=== PATIENT | male | born 1955 | race Caucasian/White ===

== ENCOUNTER 2017-04-22 19:15 | Inpatient (IN) | payer BC ==
[2017-04-22] MEDS ORDERED: ASPIRIN 81 MG CHEW PO STA (19:39)
[2017-04-22] MEDS ORDERED: ONDANSETRON 4 MG/2 ML VIAL IVP STA (19:40)
--- NOTE | 2017-04-22 19:44 | ED ---
Arrhythmia/Palpitations HPI - General Source: patient, RN notes reviewed Mode of arrival: wheelchair Limitations: no limitations <Nik Oconnell - Last Filed: 04/22/17 20:41> <Parveen Ashton - Last Filed: 04/22/17 21:02> - General Chief Complaint: Arrhythmia/Palpitations Stated Complaint: Rapid Pulse/Vomiting Time Seen by Provider: 04/22/17 19:33 - History of Present Illness Initial Comments: This a 61-year-old male presents emergency Department with chief complaint of nausea, diaphoresis, not feeling well. Patient states it has no prior arrival he was sitting in the movies and states he has sudden onset of the symptoms. He states he has no chest pain or shortness breath this time. He states he just feels dizzy and feels off. He does complain that he feels that his heart is racing. Patient does admit that he's had a prior history of A. fib and history DVT in which he takes xarelto currently. Patient states he has stress test several years ago but nothing recent. He does have a history of hypertension and some borderline hyperlipidemia though he does not take medication for cholesterol. Patient has family history of heart disease. Patient states is a nonsmoker no history of diabetes. pt denies any chills, , fever, headache, focal weakness. Patient states he has no abdominal pain just nausea and did have an episode of vomiting. (Nik Oconnell) - Related Data Home Medications Medication Instructions Recorded Confirmed Lisinopril [Zestril] 10 mg PO DAILY 08/24/15 04/22/17 Ibuprofen [Motrin] 200 - 400 mg PO Q6HR PRN 04/22/17 04/22/17 Rivaroxaban [Xarelto] 20 mg PO DAILY 04/22/17 04/22/17 Allergies Allergy/AdvReac Type Severity Reaction Status Date / Time No Known Allergies Allergy Verified 04/22/17 20:05 Review of Systems ROS Other: All systems not noted in ROS Statement are negative. <Nik Oconnell - Last Filed: 04/22/17 20:41> ROS Other: All systems not noted in ROS Statement are negative. <Parveen Ashton - Last Filed: 04/22/17 21:02> ROS Statement: Those systems with pertinent positive or pertinent negative responses have been documented in the HPI. Past Medical History Past Medical History: Deep Vein Thrombosis (DVT) Additional Past Medical History / Comment(s): supposed to use CPAP, had hepatitis as a teen, past hx. irregular heartbeat-testing was wnl per pt. History of Any Multi-Drug Resistant Organisms: None Reported Past Surgical History: Orthopedic Surgery Additional Past Surgical History / Comment(s): acl r knee, left bicep tendon, left shoulder, right wrist Past Anesthesia/Blood Transfusion Reactions: Postoperative Nausea & Vomiting ( PONV) Past Psychological History: No Psychological Hx Reported Smoking Status: Never smoker Past Alcohol Use History: Rare Past Drug Use History: None Reported - Past Family History Mother Family Medical History: Cancer <Nik Oconnell - Last Filed: 04/22/17 20:41> General Exam Limitations: no limitations General appearance: alert, in no apparent distress, other (Diaphoretic) Head exam: Present: atraumatic, normocephalic, normal inspection Eye exam: Present: normal appearance, PERRL, EOMI. Absent: scleral icterus, conjunctival injection, periorbital swelling Respiratory exam: Present: normal lung sounds bilaterally. Absent: respiratory distress, wheezes, rales, rhonchi, stridor Cardiovascular Exam: Present: normal rhythm, tachycardia, normal heart sounds. Absent: systolic murmur, diastolic murmur, rubs, gallop, clicks Neurological exam: Present: alert, oriented X3, CN II-XII intact, reflexes normal. Absent: motor sensory deficit Skin exam: Present: warm, dry, intact, normal color. Absent: rash <Nik Oconnell - Last Filed: 04/22/17 20:41> Medical Decision Making - Lab Data Result diagrams: 04/22/17 19:35 04/22/17 19:35 <Nik Oconnell - Last Filed: 04/22/17 20:41> - Lab Data Result diagrams: 04/22/17 19:35 04/22/17 19:35 <Parveen Ashton - Last Filed: 04/22/17 21:02> - Medical Decision Making Chief complaint history of present illness 17-year-old male here with his significant other. She reports that while during a show he stated he didn't feel well. She noticed he was very diaphoretic she brought him directly to the emergency room. Patient is not complaining of chest pain but he states he just doesn't feel well first EKG was ordered rate of 128 which appeared to be A. fib with RVR. 10 minutes later repeat EKG showed what appeared to be a sinus rhythm. The patient continues to be diaphoretic. Lateral ischemic changes noted on the second EKG. The patient has had in the past for DVT for which she was placed on Xarelto. Due to the patient's condition and EKG changes Dr. MELVIN per week, on-call mobility architect was notified and is coming to emergency room see the patient. Dr. Poli MELVIN pre-saw the patient in the emergency room. The patient's heart rhythm switched from 128 down to approximately 70 with normal sinus rhythm. He was admitted to medicine with consult from Dr. MELVIN per [place] saw him in emergency room. Patient to be continued on Xarelto and Lopressor. (Parveen Ashton) - Lab Data Lab Results 04/22/17 04/22/17 04/22/17 Range/Units 19:35 19:35 19:35 WBC 12.2 H (3.8-10.6) k/uL RBC 4.77 (4.30-5.90) m/uL Hgb 15.2 (13.0-17.5) gm/dL Hct 45.3 (39.0-53.0) % MCV 94.9 (80.0-100.0) fL MCH 31.8 (25.0-35.0) pg MCHC 33.5 (31.0-37.0) g/dL RDW 13.9 (11.5-15.5) % Plt Count 287 (150-450) k/uL Neutrophils % 46 % Lymphocytes % 43 % Monocytes % 6 % Eosinophils % 2 % Basophils % 1 % Neutrophils # 5.6 (1.3-7.7) k/uL Lymphocytes # 5.3 H (1.0-4.8) k/uL Monocytes # 0.8 (0-1.0) k/uL Eosinophils # 0.2 (0-0.7) k/uL Basophils # 0.1 (0-0.2) k/uL PT (9.0-12.0) sec INR (<1.2) APTT (22.0-30.0) sec D-Dimer (<0.60) mg/L FEU Sodium 141 (137-145) mmol/L Potassium 3.4 L (3.5-5.1) mmol/L Chloride 106 (98-107) mmol/L Carbon Dioxide 25 (22-30) mmol/L Anion Gap 10 mmol/L BUN 19 (9-20) mg/dL Creatinine 1.22 (0.66-1.25) mg/dL Est GFR (MDRD) Af Amer >60 (>60 ml/min/1.73 sqM) Est GFR (MDRD) Non-Af >60 (>60 ml/min/1.73 sqM) Glucose 84 (74-99) mg/dL Calcium 9.8 (8.4-10.2) mg/dL Magnesium 2.1 (1.6-2.3) mg/dL Total Bilirubin 1.5 H (0.2-1.3) mg/dL AST 32 (17-59) U/L ALT 39 (21-72) U/L Alkaline Phosphatase 69 (38-126) U/L Total Creatine Kinase 467 H (55-170) U/L CK-MB (CK-2) 1.5 (0.0-2.4) ng/mL CK-MB (CK-2) Rel Index 0.3 Troponin I <0.012 (0.000-0.034) ng/mL Total Protein 7.3 (6.3-8.2) g/dL Albumin 4.5 (3.5-5.0) g/dL 04/22/17 04/22/17 Range/Units 19:35 19:35 WBC (3.8-10.6) k/uL RBC (4.30-5.90) m/uL Hgb (13.0-17.5) gm/dL Hct (39.0-53.0) % MCV (80.0-100.0) fL MCH (25.0-35.0) pg MCHC (31.0-37.0) g/dL RDW (11.5-15.5) % Plt Count (150-450) k/uL Neutrophils % % Lymphocytes % % Monocytes % % Eosinophils % % Basophils % % Neutrophils # (1.3-7.7) k/uL Lymphocytes # (1.0-4.8) k/uL Monocytes # (0-1.0) k/uL Eosinophils # (0-0.7) k/uL Basophils # (0-0.2) k/uL PT 11.2 (9.0-12.0) sec INR 1.1 (<1.2) APTT 23.9 (22.0-30.0) sec D-Dimer 0.70 H (<0.60) mg/L FEU Sodium (137-145) mmol/L Potassium (3.5-5.1) mmol/L Chloride (98-107) mmol/L Carbon Dioxide (22-30) mmol/L Anion Gap mmol/L BUN (9-20) mg/dL Creatinine (0.66-1.25) mg/dL Est GFR (MDRD) Af Amer (>60 ml/min/1.73 sqM) Est GFR (MDRD) Non-Af (>60 ml/min/1.73 sqM) Glucose (74-99) mg/dL Calcium (8.4-10.2) mg/dL Magnesium (1.6-2.3) mg/dL Total Bilirubin (0.2-1.3) mg/dL AST (17-59) U/L ALT (21-72) U/L Alkaline Phosphatase (38-126) U/L Total Creatine Kinase (55-170) U/L CK-MB (CK-2) (0.0-2.4) ng/mL CK-MB (CK-2) Rel Index Troponin I (0.000-0.034) ng/mL Total Protein (6.3-8.2) g/dL Albumin (3.5-5.0) g/dL Critical Care Time Critical Care Time: Yes (30 minutes of critical care time spent on 1 patient reviewing 3 EKGs, 3 rep) Total Critical Care Time: 30 <Parveen Ashton - Last Filed: 04/22/17 21:02> Disposition <Nik Oconnell - Last Filed: 04/22/17 20:41> <Parveen Ashton - Last Filed: 04/22/17 21:02> Clinical Impression: Palpitations, Atrial fib/flutter, transient, Tachycardia, Diaphoresis, Nausea & vomiting Disposition: ADMITTED IP TO THIS HOSP Condition: Fair Referrals: Efren Rodriguez MD [Primary Care Provider] - 1-2 days
[2017-04-22 19:52] LABS: Basophils # (A) 0.1 k/uL (0-0.2); Basophils % (A) 1 %; CH 32.9; CHCM 34.8; Eosinophils # (A) 0.2 k/uL (0-0.7); Eosinophils % (A) 2 %; HCT 45.3 % (39.0-53.0); HGB 15.2 gm/dL (13.0-17.5); Luc # (Auto) 0.31; Luc % (Auto) 3; Lymphocytes # (A) 5.3 k/uL (1.0-4.8); Lymphocytes % (A) 43 %; MCH 31.8 pg (25.0-35.0); MCHC 33.5 g/dL (31.0-37.0); MCV 94.9 fL (80.0-100.0); Mean Platelet Volume 7.5; Monocytes # (A) 0.8 k/uL (0-1.0); Monocytes % (A) 6 %; Neutrophils # (A) 5.6 k/uL (1.3-7.7); Neutrophils % (A) 46 %; RBC 4.77 m/uL (4.30-5.90); RDW 13.9 % (11.5-15.5); WBC 12.2 k/uL (3.8-10.6); WBC (Perox) 11.83
[2017-04-22 20:02] LABS: ALT 39 U/L (21-72); AST 32 U/L (17-59); Alkaline Phosphatase 69 U/L (38-126); Anion Gap 10 mmol/L; Blood Urea Nitrogen 19 mg/dL (9-20); Calcium 9.8 mg/dL (8.4-10.2); Carbon Dioxide 25 mmol/L (22-30); Chloride 106 mmol/L (98-107); Glucose 84 mg/dL (74-99); Magnesium 2.1 mg/dL (1.6-2.3); Non-African American GFR(MDRD) >60 (>60 ml/min/1.73 sqM); Potassium 3.4 mmol/L (3.5-5.1); Sodium 141 mmol/L (137-145); Total Bilirubin 1.5 mg/dL (0.2-1.3); Total Protein 7.3 g/dL (6.3-8.2)
[2017-04-22] MEDS ORDERED: POTASSIUM CHLORIDE ER 20 MEQ TAB.ER PO STA (20:03)
--- NOTE | 2017-04-22 20:09 | XR ---
EXAMINATION TYPE: XR chest 1V portable DATE OF EXAM: 04/22/2017 COMPARISON: NONE HISTORY: Chest pain and palpitations with exertion. TECHNIQUE: Single frontal view of the chest is obtained. FINDINGS: There is no focal air space opacity, pleural effusion, or pneumothorax seen. The cardiac silhouette size is within normal limits. The osseous structures are intact. IMPRESSION: No acute cardiopulmonary process.
[2017-04-22 20:16] LABS: Creatine Kinase 467 U/L (55-170)
[2017-04-22 20:17] LABS: INR 1.1 (<1.2); Partial Thromboplastin Time 23.9 sec (22.0-30.0); Prothrombin Time 11.2 sec (9.0-12.0)
[2017-04-22 20:29] LABS: Creatine Kinase MB 1.5 ng/mL (0.0-2.4); Troponin I <0.012 ng/mL (0.000-0.034)
[2017-04-22] MEDS ORDERED: RIVAROXABAN 10 MG TAB PO STA (20:37)
[2017-04-22] MEDS ORDERED: METOPROLOL TARTRATE 5 MG/5 ML VIAL IVP STA (20:37)
[2017-04-22] MEDS ORDERED: NITROGLYCERIN SL TABS 0.4 MG TAB SUBLINGUAL PRN (20:42)
[2017-04-22] MEDS: POTASSIUM CHLORIDE 10 MEQ, LIDOCAINE 2% INJ 10 MG in SODIUM CHLORIDE 0.9% 100 ML IVPB SCH ×3 (21:15→23:55)
[2017-04-22 22:07] VITALS: BMI 31.5
[2017-04-22] MEDS ORDERED: RX INFO: IV CONTRAST WAS GIVEN 1 EACH MISC MISCELLANE PRN (22:08)
--- NOTE | 2017-04-22 23:24 | CT ---
EXAM: CT Angiography Chest With Intravenous Contrast CLINICAL HISTORY: Reason: elevated d-dimer TECHNIQUE: Axial computed tomographic angiography images of the chest with intravenous contrast using pulmonary embolism protocol. CTDI is 12.3 mGy and DLP is 506.7 mGy-cm This CT exam was performed using one or more of the following dose reduction techniques: automated exposure control, adjustment of the mA and/or kV according to patient size, and/or use of iterative reconstruction technique. 3D reconstructed images were created and reviewed. COMPARISON: None FINDINGS: Pulmonary arteries: No pulmonary embolism. Aorta: No aortic aneurysm Lungs: Mild atelectasis. No consolidation. Pleural space: Unremarkable. No significant effusion. No pneumothorax. Heart: Coronary atherosclerosis. Bones/joints: No acute fracture or dislocation Soft tissues: Unremarkable. Lymph nodes: No mediastinal or hilar lymphadenopathy Upper abdomen: Upper abdomen is normal IMPRESSION: No pulmonary embolism. No pulmonary consolidation
[2017-04-23 01:23] LABS: Anion Gap 11 mmol/L; Blood Urea Nitrogen 21 mg/dL (9-20); Calcium 9.3 mg/dL (8.4-10.2); Carbon Dioxide 24 mmol/L (22-30); Chloride 105 mmol/L (98-107); Glucose 145 mg/dL (74-99); Non-African American GFR(MDRD) >60 (>60 ml/min/1.73 sqM); Sodium 140 mmol/L (137-145)
[2017-04-23 01:25] LABS: Creatine Kinase MB 1.2 ng/mL (0.0-2.4)
[2017-04-23 01:47] LABS: Potassium 4.5 mmol/L (3.5-5.1)
[2017-04-23 08:03] LABS: Cholesterol 172 mg/dL (<200); HDL Cholesterol 53 mg/dL (40-60)
[2017-04-23 08:09] LABS: Creatine Kinase 233 U/L (55-170)
[2017-04-23 08:19] LABS: Creatine Kinase MB 1.4 ng/mL (0.0-2.4)
[2017-04-23 08:34] LABS: Troponin I <0.012 ng/mL (0.000-0.034)
[2017-04-23] MEDS ORDERED: ASPIRIN 325 MG TAB PO SCH (09:00)
[2017-04-23] MEDS ORDERED: METOPROLOL TARTRATE 25 MG TAB PO SCH (09:00)
[2017-04-23 09:03] VITALS: BP 111/74; PULSE 65; RESP 16; TEMP 97.2
--- NOTE | 2017-04-23 09:40 | P.CRDCN ---
History of Present Illness Consult date: 04/22/17 Chief complaint: Palpitations History of present illness: Mr. Norwood is a 61-year-old gentleman who was seen in the emergency room for the evaluation of symptoms of weakness and diaphoresis and the palpitation. This patient was in the movie theater and he did not feel well he became dizzy he felt that his heart was racing and he became diaphoretic. And did not complain of any chest pain he did not had any significant shortness of breath. The patient arrived in the emergency room initially he was in normal sinus rhythm subsequently patient was noticed to be in atrial flutter with a rapid rate. Currently patient converted back to normal sinus rhythm. He did feel nauseated and had one episode of vomiting in the emergency room he did not complain of any chest pain patient gives a history that he had an episode of atrial fibrillation several years ago FAMILY prior to surgery. Patient has a history of for DVT up to his knee surgery about a year ago. He has been taking xarelto once a day except dose he does not know his INR was only 1.1 patient claims that he was taking xarelto regularly. He has a history of for hypertension. No history of diabetes. And is active physically does not have any symptoms of angina. Past Medical History Past Medical History: Atrial Fibrillation, Deep Vein Thrombosis (DVT) Additional Past Medical History / Comment(s): supposed to use CPAP, had hepatitis as a teen, past hx. irregular heartbeat-testing was wnl per pt. elevated liver function testing History of Any Multi-Drug Resistant Organisms: None Reported Past Surgical History: Orthopedic Surgery Additional Past Surgical History / Comment(s): acl r knee, left bicep tendon, left/ right rotator cuff sx 2016, right wrist Past Anesthesia/Blood Transfusion Reactions: Postoperative Nausea & Vomiting ( PONV) Past Psychological History: No Psychological Hx Reported Smoking Status: Never smoker Past Alcohol Use History: Rare Past Drug Use History: None Reported - Past Family History Father Family Medical History: Congestive Heart Failure (CHF), COPD, Diabetes Mellitus , Hypertension Additional Family Medical History / Comment(s): elevated liver function Mother Family Medical History: Cancer Medications and Allergies Home Medications Medication Instructions Recorded Confirmed Type Lisinopril [Zestril] 10 mg PO DAILY 08/24/15 04/22/17 History Ibuprofen [Motrin] 200 - 400 mg PO Q6HR PRN 04/22/17 04/22/17 History Rivaroxaban [Xarelto] 20 mg PO DAILY 04/22/17 04/22/17 History Allergies Allergy/AdvReac Type Severity Reaction Status Date / Time No Known Allergies Allergy Verified 04/22/17 20:05 Physical Exam Vitals: Vital Signs Temp Pulse Pulse Resp BP BP Pulse Ox 04/23/17 09:01 97.2 F L 65 16 111/74 97 04/23/17 03:21 96.9 F L 64 18 121/83 96 04/23/17 00:00 96.9 F L 62 18 118/80 100 04/22/17 21:18 96.7 F L 61 18 137/67 98 04/22/17 21:05 55 L 18 118/74 98 04/22/17 20:31 68 20 126/81 99 04/22/17 20:15 71 20 120/82 99 04/22/17 20:14 64 20 123/79 98 04/22/17 20:00 68 20 123/79 96 04/22/17 19:53 126 H 22 04/22/17 19:44 130 H 22 133/89 99 04/22/17 19:33 138 H 22 135/93 97 04/22/17 19:24 98.3 F 75 20 133/85 97 Intake and Output 04/22/17 04/23/17 04/23/17 22:59 06:59 14:59 Intake Total 350 550 Output Total 500 Balance 350 50 Intake: IV 150 450 0.9@75mls/hr 150 450 Intake, IV Titration 200 100 Amount Potassium Chloride 10 meq 200 100 Lidocaine 2% Inj 10 mg In Sodium Chloride 0.9% 100 ml @ 100 mls/hr IVPB Q1HR [facility] Rx#:[id number] Output: Urine 500 Other: Voiding Method Urinal Weight 99.79 kg 102.2 kg Patient's vital signs are reviewed. HEENT negative. Neck. Supple there is no increase in jugular venous pressure at the carotid pulses are felt that is no bruit. Chest is symmetrical. Heart. First and second heart sounds are normal no murmurs are heard. Lungs. Clinically clear to auscultation and percussion. Abdomen is soft liver and spleen are not enlarged bowel sounds are heard. Extremities peripheral pulses since are 2+. EKG showed evidence of atrial flutter with a rapid ventricular rate. At present patient is in normal sinus rhythm Patient's potassium was 3.4. Results 04/22/17 19:35 04/23/17 00:42 Cardiac Enzymes 04/22/17 04/22/17 04/23/17 Range/Units 19:35 19:35 00:42 AST 32 (17-59) U/L CK-MB (CK-2) 1.5 1.2 (0.0-2.4) ng/mL Troponin I <0.012 (0.000-0.034) ng/mL 04/23/17 04/23/17 Range/Units 00:42 07:28 AST (17-59) U/L CK-MB (CK-2) 1.4 (0.0-2.4) ng/mL Troponin I <0.012 <0.012 (0.000-0.034) ng/mL Coagulation 04/22/17 Range/Units 19:35 PT 11.2 (9.0-12.0) sec APTT 23.9 (22.0-30.0) sec Lipids 04/23/17 Range/Units 07:28 Triglycerides 51 (<150) mg/dL Cholesterol 172 (<200) mg/dL HDL Cholesterol 53 (40-60) mg/dL CBC 04/22/17 Range/Units 19:35 WBC 12.2 H (3.8-10.6) k/uL RBC 4.77 (4.30-5.90) m/uL Hgb 15.2 (13.0-17.5) gm/dL Hct 45.3 (39.0-53.0) % Plt Count 287 (150-450) k/uL Comprehensive Metabolic Panel 04/22/17 04/23/17 Range/Units 19:35 00:42 Sodium 141 140 (137-145) mmol/L Potassium 3.4 L 4.5 (3.5-5.1) mmol/L Chloride 106 105 (98-107) mmol/L Carbon Dioxide 25 24 (22-30) mmol/L BUN 19 21 H (9-20) mg/dL Creatinine 1.22 1.10 (0.66-1.25) mg/dL Glucose 84 145 H (74-99) mg/dL Calcium 9.8 9.3 (8.4-10.2) mg/dL AST 32 (17-59) U/L ALT 39 (21-72) U/L Alkaline Phosphatase 69 (38-126) U/L Total Protein 7.3 (6.3-8.2) g/dL Albumin 4.5 (3.5-5.0) g/dL Current Medications Generic Name Dose Route Start Last Admin Trade Name Freq PRN Reason Stop Dose Admin Aspirin 325 mg 04/23/17 09:00 Aspirin PO DAILY [facility] Metoprolol Tartrate 25 mg 04/23/17 09:00 Lopressor PO BID [facility] Miscellaneous Information 1 each 04/22/17 22:08 Rx Info: Iv Contrast Was Given MISCELLANE 04/24/17 22:09 DAILY PRN Per Protocol Nitroglycerin 0.4 mg 04/22/17 20:42 Nitrostat SUBLINGUAL Q5M PRN Chest Pain Rivaroxaban 20 mg 04/23/17 17:30 Xarelto PO W/SUPPER [facility] Intake and Output 04/22/17 04/23/17 04/23/17 22:59 06:59 14:59 Intake Total 350 550 Output Total 500 Balance 350 50 Intake: IV 150 450 0.9@75mls/hr 150 450 Intake, IV Titration 200 100 Amount Potassium Chloride 10 meq 200 100 Lidocaine 2% Inj 10 mg In Sodium Chloride 0.9% 100 ml @ 100 mls/hr IVPB Q1HR [facility] Rx#:[id number] Output: Urine 500 Other: Voiding Method Urinal Weight 99.79 kg 102.2 kg 04/22/17 19:35 04/23/17 00:42 EKG Interpretations (text) Patient's 1 EKG showed evidence of atrial flutter second EKG is also normal sinus rhythm. His and has a minimal ST-T changes in the lateral leads which could be secondary to hypertension and hypokalemia lout any evidence of significant ischemia. Assessment and Plan Plan: This patient is admitted with the paroxysmal atrial flutter he is now converted to the normal sinus rhythm. At present there is no evidence of her acute myocardial infarction the results of the D-dimer test are being awaited. His and is already taking xarelto once a day. We will resume the patient's xarelto 20 mg daily in the troponins are normal aspirin can be discontinued start the patient on Lopressor 25 mg twice a day echo and Doppler study would be done.
--- NOTE | 2017-04-23 10:43 | ECHOF ---
Referral Reason:tachycardia MEASUREMENTS -------- HEIGHT: 177.8 cm WEIGHT: 102.1 kg BP: 121/83 RVIDd: 2.9 cm (< 3.3) IVSd: 1.0 cm (0.6 - 1.1) LVIDd: 4.8 cm (3.9 - 5.3) LVPWd: 1.1 cm (0.6 - 1.1) IVSs: 1.6 cm LVIDs: 2.9 cm LVPWs: 1.4 cm LA Diam: 3.6 cm (2.7 - 3.8) LAESV Index (A-L): 36.27 ml/m Ao Diam: 3.7 cm (2.0 - 3.7) AV Cusp: 2.6 cm (1.5 - 2.6) MV EXCURSION: 18.872 mm (> 18.000) MV EF SLOPE: 128 mm/s (70 - 150) EPSS: 0.3 cm MV E Efren: 0.88 m/s MV DecT: 220 ms MV A Efren: 0.62 m/s MV E/A Ratio: 1.43 RAP: 5.00 mmHg RVSP: 23.14 mmHg FINDINGS -------- Sinus rhythm. This was a technically good study. The left ventricular size is normal. There is borderline concentric left ventricular hypertrophy. Overall left ventricular systolic function is normal with, an EF between 55 - 60 %. The right ventricle is normal in size. LA is moderately dilated 34-39 ml/m2 The right atrium is normal in size. The aortic valve is trileaflet and appears structurally normal. There is trace to mild mitral regurgitation. Mild tricuspid regurgitation present. Right ventricular systolic pressure is normal at < 35 mmHg. Trace/mild (physiologic) pulmonic regurgitation. The aortic root is dilated measuring 3.7cm. Normal inferior vena cava with normal inspiratory collapse consistent with estimated right atrial pressure of 5 mmHg. There is no pericardial effusion. CONCLUSIONS -------- 1. Sinus rhythm. 2. There is trace to mild mitral regurgitation. 3. Mild tricuspid regurgitation present. 4. Right ventricular systolic pressure is normal at < 35 mmHg. 5. Trace/mild (physiologic) pulmonic regurgitation. 6. The aortic root is dilated measuring 3.7cm. 7. Normal inferior vena cava with normal inspiratory collapse consistent with estimated right atrial pressure of 5 mmHg. 8. There is no pericardial effusion. 9. This was a technically good study. 10. The left ventricular size is normal. 11. There is borderline concentric left ventricular hypertrophy. 12. Overall left ventricular systolic function is normal with, an EF between 55 - 60 %. 13. The right ventricle is normal in size. 14. LA is moderately dilated 34-39 ml/m2 15. The right atrium is normal in size. 16. The aortic valve is trileaflet and appears structurally normal. FAMILY CONSULTANT: Radha Jordan RDCS
--- NOTE | 2017-04-23 13:38 | P.PN ---
Subjective Principal diagnosis: Atrial flutter Mr. Norwood is a 61-year-old gentleman who was seen in the emergency room for the evaluation of symptoms of weakness and diaphoresis and the palpitation. This patient was in the movie theater and he did not feel well he became dizzy he felt that his heart was racing and he became diaphoretic. And did not complain of any chest pain he did not had any significant shortness of breath. The patient arrived in the emergency room initially he was in normal sinus rhythm subsequently patient was noticed to be in atrial flutter with a rapid rate. Currently patient converted back to normal sinus rhythm. He did feel nauseated and had one episode of vomiting in the emergency room he did not complain of any chest pain patient gives a history that he had an episode of atrial fibrillation several years ago FAMILY prior to surgery. Patient has a history of for DVT up to his knee surgery about a year ago. He has been taking xarelto once a day except dose he does not know his INR was only 1.1 patient claims that he was taking xarelto regularly. He has a history of for hypertension. No history of diabetes. And is active physically does not have any symptoms of angina. 04/23/2017 Patient seen and examined today, continues to be in a normal sinus rhythm. Echocardiogram with Doppler study revealed a normal left ventricular systolic function. CTA of the chest negative for pulmonary embolism. Patient may be able to be discharged home today from cardiology's perspective. We will make him a follow-up appointment to see Dr. VC Rosales in the office post discharge. We will continue the xarelto 20 mg daily along with the Lopressor 25 mg one tablet by mouth twice a day. Objective - Vital Signs Vital signs: Vital Signs Temp 97.2 F L 04/23/17 09:01 Pulse 65 04/23/17 12:00 Resp 16 04/23/17 12:00 BP 111/74 04/23/17 09:01 Pulse Ox 97 04/23/17 09:01 Intake & Output 04/22/17 04/23/17 04/23/17 18:59 06:59 18:59 Intake Total 900 240 Output Total 500 Balance 400 240 Weight 102.2 kg Intake: IV 600 0.9@75mls/hr 600 Intake, IV Titration 300 Amount Potassium Chloride 10 meq 300 Lidocaine 2% Inj 10 mg In Sodium Chloride 0.9% 100 ml @ 100 mls/hr IVPB Q1HR [facility] Rx#:[id number] Oral 240 Output: Urine 500 Other: Voiding Method Urinal Toilet # Voids 1 - Exam PHYSICAL EXAMINATION: HEENT: Head is atraumatic, normocephalic. Pupils equal, round. Neck is supple. There is no elevated jugular venous pressure. HEART EXAMINATION: Heart S1, S2 normal. No murmur or gallop heard. CHEST EXAMINATION: Lungs are clear to auscultation and precussion. No chest wall tenderness is noted on palpation or with deep breathing. ABDOMEN: Soft, nontender. Bowel sounds are heard. No organomegaly noted. EXTREMITIES: 2+ peripheral pulses with no evidence of peripheral edema and no calf tenderness noted. NEUROLOGIC patient is awake, alert and oriented -3. . - Labs CBC & Chem 7: 04/22/17 19:35 04/23/17 00:42 Labs: Abnormal Lab Results - Last 24 Hours (Table) 04/22/17 04/22/17 04/22/17 Range/Units 19:35 19:35 19:35 WBC 12.2 H (3.8-10.6) k/uL Lymphocytes # 5.3 H (1.0-4.8) k/uL D-Dimer (<0.60) mg/L FEU Potassium 3.4 L (3.5-5.1) mmol/L BUN (9-20) mg/dL Glucose (74-99) mg/dL Total Bilirubin 1.5 H (0.2-1.3) mg/dL Total Creatine Kinase 467 H (55-170) U/L LDL Cholesterol, Calc (0-99) mg/dL 04/22/17 04/23/17 04/23/17 Range/Units 19:35 00:42 00:42 WBC (3.8-10.6) k/uL Lymphocytes # (1.0-4.8) k/uL D-Dimer 0.70 H (<0.60) mg/L FEU Potassium (3.5-5.1) mmol/L BUN 21 H (9-20) mg/dL Glucose 145 H (74-99) mg/dL Total Bilirubin (0.2-1.3) mg/dL Total Creatine Kinase 326 H (55-170) U/L LDL Cholesterol, Calc (0-99) mg/dL 04/23/17 04/23/17 Range/Units 07:28 07:28 WBC (3.8-10.6) k/uL Lymphocytes # (1.0-4.8) k/uL D-Dimer (<0.60) mg/L FEU Potassium (3.5-5.1) mmol/L BUN (9-20) mg/dL Glucose (74-99) mg/dL Total Bilirubin (0.2-1.3) mg/dL Total Creatine Kinase 233 H (55-170) U/L LDL Cholesterol, Calc 109 H (0-99) mg/dL Assessment and Plan (1) HTN (hypertension) Status: Acute (2) History of DVT (deep vein thrombosis) Status: Acute (3) Atrial fib/flutter, transient Status: Acute (4) Diaphoresis Status: Acute Plan: From cardiology's perspective, patient may be able to be discharged home today. He has been recommended to continue Xarelto 20 mg daily along with Lopressor 25 mg one tablet by mouth twice a day. We will make him a follow-up appointment to see Dr. VC Rosales in the office post discharge. DNP note has been reviewed, I agree with a documented findings and plan of care. Patient was seen and examined.
--- NOTE | 2017-04-23 14:19 | P.HPIM ---
History of Present Illness H&P Date: 04/23/17 Chief Complaint: Not feeling well History of presenting complaint: This is a 61-year-old patient who Dr. Rodriguez. Has a history of atrial flutter the past. Has obstructive sleep apnea does not use a CPAP machine. Was watching a movie with his and suddenly started feeling well sweaty and nauseated and decided to come down to the ER. Was found to be in atrial flutter with rapid ventricle rate. Given one dose of IV Lopressor. Symptoms lasted for maybe an hour. Patient had a stress test in the past and was negative. And rather active otherwise. GEN.: Tired EYES: None HEENT: None NECK: None RESPIRATORY: None CARDIOVASCULAR: As above] GASTROINTESTINAL: None GENITOURINARY: None MUSCULOSKELETAL: None LYMPHATICS: None HEMATOLOGICAL: None PSYCHIATRY: None NEUROLOGICAL: None Past medical history: Atrial flutter fibrillation, DVT following a surgery in the knee the past, obstructive sleep apnea Past surgical history: ACL repair right knee, left bicipital tendon repair, left and right rotator cuff surgery Social history: , drives a truck, no smoking, alcohol rarely. Family history: Cancer type unknown home medications: Reviewed in the computer ALLERGIES: None VITAL SIGNS: Temperature 98.3, heart rate 138, respiration 22, blood pressure 135-93, pulse of 97% on room air on presentation GENERAL: Average built BMI 32.3, sitting up, comfortable. EYES: Pupils equal. Conjunctiva normal. HEENT: External appearance of nose and ears normal, oral cavity grossly normal. NECK: JVD not raised; masses not palpable. HEART: First and second heart sounds are normal; no edema. LUNGS: Respiratory rate normal; clear to auscultation. ABDOMEN: Soft, nontender, liver spleen not palpable, no masses palpable. LYMPHATICS: No lymph nodes palpable in the axilla and neck. PSYCH: Alert and oriented x3; mood and affect normal. NEUROLOGICAL: Cranial nerves grossly intact; no facial asymmetry, power and sensation grossly intact. Investigations: White count 12.2, hemoglobin 15.2, potassium 3.4, BUN/creatinine normal, troponin 3 negative, para function normal EKG atrial flutter with rapid ventricular rate Assessment: -Paroxysmal atrial flutter with rapid ventricular rate -Obstructive sleep apnea does not use a CPAP machine -Obesity BMI 32.3 Plan: Patient had converted to sinus rhythm. Cardiology was consulted. They have decided to increase the dose of Xarelto and add beta blockers. Care was discussed with patient and questions answered. Past Medical History Past Medical History: Atrial Fibrillation, Deep Vein Thrombosis (DVT) Additional Past Medical History / Comment(s): supposed to use CPAP, had hepatitis as a teen, past hx. irregular heartbeat-testing was wnl per pt. elevated liver function testing History of Any Multi-Drug Resistant Organisms: None Reported Past Surgical History: Orthopedic Surgery Additional Past Surgical History / Comment(s): acl r knee, left bicep tendon, left/ right rotator cuff sx 2015, right wrist Past Anesthesia/Blood Transfusion Reactions: Postoperative Nausea & Vomiting ( PONV) Past Psychological History: No Psychological Hx Reported Smoking Status: Never smoker Past Alcohol Use History: Rare Past Drug Use History: None Reported - Past Family History Father Family Medical History: Congestive Heart Failure (CHF), COPD, Diabetes Mellitus , Hypertension Additional Family Medical History / Comment(s): elevated liver function Mother Family Medical History: Cancer Medications and Allergies Home Medications Medication Instructions Recorded Confirmed Type Lisinopril [Zestril] 10 mg PO DAILY 08/24/15 04/22/17 History Rivaroxaban [Xarelto] 20 mg PO DAILY 04/22/17 04/22/17 History Allergies Allergy/AdvReac Type Severity Reaction Status Date / Time No Known Allergies Allergy Verified 04/22/17 20:05 Results CBC & Chem 7: 04/22/17 19:35 04/23/17 00:42
--- NOTE | 2017-04-23 15:00 | CDI ---
In responding to this query, please exercise your independent professional judgment. The [facility] Coding Staff and Clinical Documentation Specialists appreciate your assistance in clarifying documentation, maintaining compliance with coding guidelines, accurately documenting patients condition and capturing severity of illness. The fact that a question is asked does not imply that any particular answer is desired or expected. Communication forms are a method of clarifying documentation and are not made part of the Legal Health Record. Thank you in advance for your clarification. Last Revision, July 2015 Rocio Ruffin [address] [place] [address] Documentation Clarification Form Date: 04/23/2017 2:50:00 PM From: Arielle De Los Santos CCS, CCDS Admit Date: 04/22/2017 9:00:00 PM Patient Name: Nando Norwood Visit Number: [id number] Discharge Date: 04/23/17 Dr. Damir Rosales: Atrial Flutter is documented in the ED note, the cardiology consult and the History & Physical. History/Risk factors: History of atrial fibrillation. Clinical Indicators: Heart rate 75 - 138^. EKG/telemetry: R 128 undetermined rhythm. R 131 Sinus tachycardia. R 67 sinus rhythm w/1st degree AV block. Treatment: Aspirin, IV Lopressor, IV Zofran, KCL, Increased dose of Xarelto. Consults: Cardiology In your professional opinion, can you please clarify the type of atrial flutter if known? Typical/Type I Atypical/Type II Other, please specify Unable to determine Please document in your progress notes and discharge summary in order to capture severity of illness and risk of mortality. Include clinical findings that support your diagnosis. FYI: Press F11 to launch patient chart MTDD
[2017-04-23] MEDS ORDERED: RIVAROXABAN 10 MG TAB PO SCH (17:30)
[2017-04-24] MEDS ORDERED: ASPIRIN 81 MG CHEW PO SCH (09:00)
--- NOTE | 2017-04-30 11:06 | P.PN ---
Progress Note - Text This is an addendum to the progress note dictated by cardiology. Patient was in atrial flutter, atypical atrial flutter, currently in normal sinus rhythm. DNP note has been reviewed, I agree with a documented findings and plan of care. Patient was seen and examined.
== END 2017-04-23 14:39 | disposition home or self-care (01) | DRG 310 ==
LOC: EC 19:15 → 6SEL 21:00
PROVIDERS: ADMIT Hospitalist; ATTEND Hospitalist
DX: I48.4 Atypical atrial flutter (principal); I10 Essential (primary) hypertension; I48.0 Paroxysmal atrial fibrillation; E78.5 Hyperlipidemia, unspecified; E66.9 Obesity, unspecified; G47.33 Obstructive sleep apnea (adult) (pediatric); Z79.01 Long term (current) use of anticoagulants; Z79.899 Other long term (current) drug therapy; Z86.718 Personal history of other venous thrombosis and embolism; Z68.32 Body mass index [BMI] 32.0-32.9, adult; Z82.49 Family history of ischemic heart disease and other diseases of the circulatory system
CPT/HCPCS: 36415; 71010; 71275; 80048; 80053; 80061; 82550; 82553; 83735; 84439; 84443; 84484; 85025; 85379; 85610; 85730; 93005; 93306; 96365; 96375; 99291

== ENCOUNTER 2019-03-05 10:09 | Day surgery (SDC) | payer BC ==
[2019-03-03 15:44] VITALS: BMI 31.5
[~2019-03-05 10:09] MED LIST: LACTATED RINGERS 1,000 ML IV SCH
[2019-03-05 10:34] VITALS: TEMP 97.6
[2019-03-05] MEDS ORDERED: PROPOFOL 10 MG/ML 20 ML VIAL IV ONE (11:33)
[2019-03-05] MEDS ORDERED: fentaNYL (PF) 50 MCG/ML 2 ML AMP ONE (11:33)
[2019-03-05] MEDS ORDERED: MIDAZOLAM 2 MG/2 ML VIAL ONE (11:33)
--- NOTE | 2019-03-05 11:52 | P.PCN ---
Date of Procedure: 03/05/19 Procedure(s) Performed: BRIEF HISTORY: Patient is a 63-year-old pleasant white male scheduled for an elective colonoscopy as a part of screening for colorectal neoplasia. PROCEDURE PERFORMED: Colonoscopy. PREOPERATIVE DIAGNOSIS: Screening for colon cancer. IV sedation per Anesthesia. PROCEDURE: After informed consent was obtained, the patient, was brought into the endoscopy unit. IV sedation was administered by Anesthesia under continuous monitoring. Digital rectal examination was normal. Initially the Olympus CF-160 flexible video colonoscope was then inserted in the rectum, gradually advanced into the cecum without any difficulty. Careful examination was performed as the scope was gradually being withdrawn. Ileocecal valve and the appendiceal orifice were visualized and appeared normal. Prep was excellent. Mucosa of the cecum, ascending colon, transverse colon, descending colon, sigmoid colon, and rectum appeared normal. Retroflexion was performed in the rectum and no lesions were seen. The patient tolerated the procedure well. IMPRESSION: Normal-appearing colon from rectum to cecum with no evidence of colorectal neoplasia. RECOMMENDATIONS: Findings of this examination were discussed with the patient as well as his family. He was advised to have a repeat screening colonoscopy in 10 years.
[2019-03-05 11:57] VITALS: RESP 16
[2019-03-05 12:19] VITALS: BP 123/82; PULSE 54
== END 2019-03-05 12:29 | disposition home or self-care (01) ==
LOC: ORWHC2ENDO 10:09
PROVIDERS: ATTEND Internal Medicine Gastroenterology
DX: Z12.11 Encounter for screening for malignant neoplasm of colon (principal); I10 Essential (primary) hypertension; I48.91 Unspecified atrial fibrillation; G47.33 Obstructive sleep apnea (adult) (pediatric); Z86.718 Personal history of other venous thrombosis and embolism; Z79.899 Other long term (current) drug therapy
CPT/HCPCS: G0121; J2704; J2250; J3010